=== PATIENT | male | born 1995 | race Two or more races ===

== ENCOUNTER 2023-01-25 12:04 | Emergency (ER) | payer OTHER ==
[~2023-01-25] VITALS: Ht 170.2 cm; Wt 100.0 kg
[2023-01-25 13:33] VITALS: BP 151/78; PULSE 66; RESP 18; TEMP 99.4; O2SAT 96
[2023-01-25] MEDS ORDERED: BACL10TA PO (14:02)
[2023-01-25] MEDS ORDERED: IBUP-1456 PO (14:02)
== END 2023-01-25 14:04 | disposition home or self-care (01) ==
LOC: ER 12:04
DX: S16.1XXA Strain of muscle, fascia and tendon at neck level, initial encounter (principal); V43.62XA Car passenger injured in collision with other type car in traffic accident, initial encounter; Y93.89 Activity, other specified; Y92.89 Other specified places as the place of occurrence of the external cause; Y99.8 Other external cause status
CPT/HCPCS: 72040